=== PATIENT | male | born 1975 | race Caucasian/White ===

== ENCOUNTER 2019-02-24 14:52 | Emergency (ER) | payer OTHER ==
[~2019-02-24] VITALS: Ht 175.3 cm; Wt 108.9 kg
[2019-02-24 14:58] VITALS: BP 130/82
--- NOTE | 2019-02-24 15:12 | NUR ---
XRAY AT BEDSIDE.
--- NOTE | 2019-02-24 15:15 | NUR ---
PT BIB FOR C/O L FOOT PAIN X5 DAYS. PAIN IS 9/10 WHEN AMBULATING AND 4/10 WHEN RESTING. SLIGHT EDEMA NOTE DIN L FETT. NO RADIATING PAIN. NO CALF PAIN. PT STATES HE NEEDS TO USE CRUTCHES TO WALK. PT GOT FOOT RAN OVER X 2 WEEKS AGO. "I DIDN'T HAVE ANY PAIN TIL NOW AND I WAS WORKING SINCE THOSE TWO WEEKS." PT TAKING IBUPROFEN 800MG PO W/SOMEWHAT EFFECTIVE RESULTS. PT HAD COUGH AND FEVER X 3 DAYS AGO. RESPIRATIONS ARE EVEN AND UNLABORED. SKIN IS WAR AND DRY TO TOUCH. AFEBRILE. DENIES N/V/D. PT AT BEDSIDE. BED IN LOWEST POSITION AND LOCKED IN PLACE. IT RESTING IN BED SITTING UP. MED HX: HYPERLIPDEMIA ALLERGIES: AUGMENTIN
[2019-02-24 15:59] VITALS: BP 130/82
--- NOTE | 2019-02-24 15:59 | NUR ---
Patient discharged with v/s stable. Written and verbal after care instructions given and explained. Patient alert, oriented and verbalized understanding of instructions. Ambulatory with to car. All questions addressed prior to discharge. ID band removed. Patient advised to follow up with PMD. Rx of NAPROXEN AND PREDNISONE given. Patient educated on indication of medication including possible reaction and side effects. Opportunity to ask questions provided and answered.
== END 2019-02-24 15:59 | disposition home or self-care (01) ==
LOC: MED 14:52
DX: M79.672 Pain in left foot (principal); Z88.1 Allergy status to other antibiotic agents
CPT/HCPCS: 73630; 99283; Q0092

== ENCOUNTER 2020-04-17 14:12 | Emergency (ER) | payer BC, OTHER ==
[~2020-04-17] VITALS: Ht 175.3 cm; Wt 107.5 kg
[2020-04-17 14:26] VITALS: BP 147/98
[2020-04-17] MEDS ORDERED: cefTRIAXone 250 MG in LIDOCAINE MPF 1% 0.9 ML IM ONE (16:05)
[2020-04-17] MEDS ORDERED: cefTRIAXone 250 MG VIAL ONE (16:25)
[2020-04-17] MEDS ORDERED: LIDOCAINE MPF 1% 5 ML ONE (16:25)
[2020-04-17 16:50] VITALS: BP 147/98
== END 2020-04-17 16:50 | disposition home or self-care (01) ==
LOC: MED 14:12
DX: N45.1 Epididymitis (principal); Z88.1 Allergy status to other antibiotic agents; Z88.8 Allergy status to other drugs, medicaments and biological substances
CPT/HCPCS: 76870; 81002; 87086; 96372; 99284; J0696; J2001